=== PATIENT | female | born 1930 | race Caucasian/White ===

== ENCOUNTER → 2017-01-06 | Outpatient (CLI) | payer MEDICARE ==
[~2017-01-06] MED LIST: AMOXICILLIN500 MG PO; ASPIRIN ADULT L81 M1 PO; ASPIRIN81 M1 PO; BACTROBAN OINT22 GM PO; BLEPH-10 15 ML15 ML OP; CARAFATE1 GM PO; HYDROCODONE BIT1 T11 PO; LEVOFLOXACIN500 MG PO; LISINOPRIL2.5 MG; LOMOTIL 0.025 M1 TAB PO; PERCOCET 325 MG1 TA2; PLAVIX75 MG PO; PREDNISONE5 MG PO; PRINIVIL5 MG; PROTONIX40 MG PO; REGLAN5 MG PO; ROBAXIN750 MG PO; TYLENOL325 M2 PO; VANCOCIN IV; VITAMIN D2000 IU PO; VITAMIN D5000 IU PO; ZANTAC 150150 MG PO; ZANTAC150 MG PO; Zofran4 MG PO
[2017-01-06 08:48] LABS: BASO % 0.4 % (0.0-1.0); EOS # 0.8 10*3/uL (0.0-0.4); EOS % 11.2 % (1.0-4.0); HEMATOCRIT 33.8 % (37.0-47.0); HEMOGLOBIN 10.9 g/dl (12.0-16.0); LYMPH # 1.8 10*3/uL (1.3-4.4); LYMPH % 25.2 % (27.0-41.0); MEAN CELL VOLUME 90.9 fl (81.0-99.0); MEAN CORPUSCULAR HGB 29.3 pg (27.0-31.0); MEAN CORPUSCULAR HGB CONC 32.2 g/dl (33.0-37.0); MEAN PLATELET VOLUME 9.6 fl (9.6-12.3); MONO # 0.5 10*3/uL (0.1-1.0); MONO % 6.7 % (3.0-9.0); NEUT # 4.1 10*3/uL (2.3-7.9); NEUT % 56.2 % (47.0-73.0); PLATELET COUNT AUTOMATED 269 10*3/uL (130-400); RED BLOOD COUNT 3.72 10*6/uL (4.10-5.10); RED CELL DISTRI WIDTH 15.1 % (0-14.5); WHITE BLOOD COUNT 7.3 10*3/uL (4.8-10.8)
[2017-01-06 09:37] LABS: ALBUMIN 3.2 gm/dl (3.1-4.5); ALKALINE PHOSPHATASE 56 U/L (45-117); BUN 25 mg/dl (7-24); CHLORIDE 110 mmol/L (98-107); CHOLESTEROL 178 mg/dL (<200); CREATININE 0.67 mg/dL (0.55-1.02); HDL CHOLESTEROL 52 mg/dl (40-60); LDL CHOLESTEROL 97 mg/dL (9-159); POTASSIUM 3.6 mmol/L (3.5-5.1); SGOT/AST 18 IU/L (3-35); SGPT/ALT 14 U/L (12-78); SODIUM 142 mmol/L (136-145); TOTAL PROTEIN 6.8 gm/dL (6.4-8.2); TRIGLYCERIDES 144 mg/dl (<150); VLDL CHOLESTEROL 29 mg/dL (6-40)
== END | disposition home or self-care (01) ==
LOC: LAB 02:00 → ORTHO 02:00
PROVIDERS: Internal Medicine
DX: M17.12 Unilateral primary osteoarthritis, left knee (principal); I10 Essential (primary) hypertension; E78.2 Mixed hyperlipidemia; E55.9 Vitamin D deficiency, unspecified

== ENCOUNTER 2017-05-05 05:18 | Inpatient (IN) | payer MEDICARE ==
[~2017-05-05] VITALS: Ht 157.4 cm; Wt 88.0 kg
--- NOTE | ~2017-05-05 | CON ---
[place], [place] REPORT OF CONSULTATION NAME: THERESA JOYA UNIT #: [id number] ROOM: 405 DOCTOR: SAUNDRA MATTHEW MD BIRTHDATE: [birth year] DOS: 05/05/2017 REASON FOR CONSULTATION: Elevated troponin. HISTORY OF PRESENT ILLNESS: The patient Courtney is an 86-year-old woman who denies any previous history of heart disease. She states that she was in her normal state of health until about 2 weeks ago when she began noticing swelling in her knees. Last week, she began noticing swelling in her feet. She denied any associated cough, dyspnea, or obvious weight gain. Last night, she went to bed normally, but sometime during the night, fell out of bed. She noted that her legs seemed weak and were more swollen and she had some pain in her right shoulder. She therefore asked the staff at [facility] to call an ambulance and she was brought to the Emergency Room. She did not have any documented fractures. Her initial troponin level was mildly elevated at 0.269. Subsequent troponin levels were 0.232 and 0.251. Her electrocardiogram showed a possible old inferior wall myocardial infarction. We were therefore asked to see her. The patient denies any dyspnea, orthopnea or PND. She does note the peripheral edema that I referenced above. She continues to deny any chest pain. PAST MEDICAL HISTORY: Includes: 1. Essential hypertension. 2. Peptic ulcer disease with gastroesophageal reflux disease. 3. History of bilateral knee replacement. 4. Status post back surgery. 5. No history of diabetes, myocardial infarction, stroke or cigarette abuse. FAMILY HISTORY: The patient's mother of cancer. Father of unknown causes. MEDICATIONS PRIOR TO ADMISSION: Aspirin 81 mg per day, vitamin D3 2000 units per day, enalapril 2.5 mg daily, naproxen 500 mg b.i.d., pantoprazole 40 mg daily and Carafate 1 gram q.i.d. ALLERGIES: She has no known drug allergies. REVIEW OF SYSTEMS: The patient denies diplopia or loss of vision. She denies fevers, chills, sweats or recent weight change. She has had the peripheral edema noted above. She denies nausea or vomiting. She denies hemoptysis or hematemesis. She denies significant cough or wheezing. She denies any change in her appetite. She denies change in bowel or bladder habits and denies bleeding in her bowels or urine. She denies skin rashes. She denies heat or cold intolerance. She denies polydipsia or polyuria. The remainder of the review of systems is negative except as noted above. SOCIAL HISTORY: The patient resides at [facility]. She has never smoked and consumes no alcohol. PHYSICAL EXAMINATION: [place], [place] REPORT OF CONSULTATION NAME: THERESA JOYA UNIT #: [id number] ROOM: 405 DOCTOR: SAUNDRA MATTHEW MD BIRTHDATE: [birth year] GENERAL: The patient is an elderly white female who is awake, alert and oriented. VITAL SIGNS: Pulse is 83 and regular, blood pressure is 162/90. She is afebrile. She weighs 88.0 kg and has a body mass index of 35.5. HEENT: Normocephalic and atraumatic. Extraocular muscles are intact. Sclerae are clear. Pupils are equal, round and react to light. The oral mucosa is moist. Tongue is midline. NECK: Supple. She has no jugular distention or hepatojugular reflux. Carotids are full. I heard no bruits. She had no neck or supraclavicular masses. LUNGS: Respirations are unlabored. Her chest is clear to auscultation and percussion. She had no presacral edema or chest wall tenderness. CARDIOVASCULAR: Heart had a regular rhythm. She had a fourth heart sound, but no third heart sound or murmur. The PMI was not displaced. She has no precordial heave, lift or thrill. ABDOMEN: Soft and normally active without masses, organomegaly or bruits. EXTREMITIES: Showed 1+ edema bilaterally. She did have some erythema of her ankles bilaterally. Her legs were tender to palpation. Peripheral pulses were diminished bilaterally. LABORATORY DATA: I reviewed her electrocardiogram, which showed sinus rhythm and an inferior wall myocardial infarction of undetermined age. I did look at her echocardiogram. Left ventricular size and overall function are normal. She does have inferoseptal hypokinesis, but the remainder of the calderon thickened normally. She has stage 1 diastolic relaxation abnormalities and an ejection fraction greater than 55%. No significant abnormality of valve function is present. IMPRESSIONS: 1. 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 2. 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 3. History of hypertension. PLAN: Given the patient's age and frailty, I think a cautious, conservative approach to her management is appropriate. We will continue to diurese her and start her on beta blockers in addition to aspirin and statins. I would avoid nonsteroidal anti-inflammatory drugs aside from aspirin. Unless she has further symptoms, I think I would avoid a risk stratifying stress test at this point and simply treat her empirically. The patient told me she would like to avoid a lot of testing and just be treated with medications as needed. I thank the hospitalist physicians for asking our advice regarding her care. [place], [place] REPORT OF CONSULTATION NAME: THERESA JOYA UNIT #: [id number] ROOM: 405 DOCTOR: SAUNDRA MATTHEW MD BIRTHDATE: [birth year] SAUNDRA MATTHEW MD CM:CONSTR:REPORT OF CONSULTATION 1704 05/05/17 2256 interface
[2017-05-05 05:18] VITALS: BP 158/86
[2017-05-05 05:54] LABS: BILIRUBIN NEGATIVE (NEGATIVE); BLOOD 1+ (NEGATIVE); COLOR YELLOW (YELLOW); GLUCOSE NEGATIVE (NEGATIVE); KETONE NEGATIVE (NEGATIVE); LEUKO ESTERASE NEGATIVE (NEGATIVE); NITRITE NEGATIVE (NEGATIVE); SPECIFIC GRAVITY 1.025 (1.005-1.030); UROBILINOGEN 0.2 E.U./dl (0.2-1.0)
[2017-05-05 05:56] LABS: BASO % 0.5 % (0.0-1.0); EOS # 0.5 10*3/uL (0.0-0.4); EOS % 7.1 % (1.0-4.0); HEMATOCRIT 35.9 % (37.0-47.0); HEMOGLOBIN 11.2 g/dl (12.0-16.0); LYMPH # 1.4 10*3/uL (1.3-4.4); LYMPH % 19.7 % (27.0-41.0); MEAN CELL VOLUME 88.2 fl (81.0-99.0); MEAN CORPUSCULAR HGB 27.5 pg (27.0-31.0); MEAN CORPUSCULAR HGB CONC 31.2 g/dl (33.0-37.0); MEAN PLATELET VOLUME 9.7 fl (9.6-12.3); MONO # 0.4 10*3/uL (0.1-1.0); MONO % 5.8 % (3.0-9.0); NEUT # 4.9 10*3/uL (2.3-7.9); NEUT % 66.6 % (47.0-73.0); PLATELET COUNT AUTOMATED 279 10*3/uL (130-400); RED BLOOD COUNT 4.07 10*6/uL (4.10-5.10); RED CELL DISTRI WIDTH 16.4 % (0-14.5); WHITE BLOOD COUNT 7.3 10*3/uL (4.8-10.8)
[2017-05-05 06:09] LABS: CLARITY CLOUDY (CLEAR)
[2017-05-05 06:12] LABS: ALBUMIN 2.1 gm/dl (3.1-4.5); CREATININE 1.27 mg/dL (0.55-1.02); POTASSIUM 3.5 mmol/L (3.5-5.1); TOTAL PROTEIN 5.8 gm/dL (6.4-8.2)
[2017-05-05 06:15] LABS: TROPONIN I 0.269 ng/ml (<0.045)
[2017-05-05] MEDS ORDERED: NAPROXEN500 MG PO (06:15)
[2017-05-05 06:16] LABS: ACT PARTIAL THROMBO TIME 29.1 SECONDS (20.8-31.5); INTERNATIONAL NORM RATIO 0.9 (2.0-3.5)
[2017-05-05] MEDS ORDERED: ENALAPRIL MALEAT5 MG PO (06:17)
[2017-05-05 06:37] VITALS: BP 186/80
[2017-05-05 06:55] LABS: THYROID STIM HORMONE (HS) 4.05 uIU/ml (0.358-4.75)
[2017-05-05 08:30] VITALS: BP 165/76
[2017-05-05] MEDS ORDERED: VASOTEC2.5 MG PO (09:15)
[2017-05-05] MEDS ORDERED: VITAMIN D-32000 UNI1 PO (09:16)
[2017-05-05 12:00] VITALS: BP 157/81
[2017-05-05 16:00] VITALS: BP 162/90
[2017-05-05 20:00] VITALS: BP 148/73
[2017-05-06] VITALS: BP 135/82
[2017-05-06 06:22] LABS: BASO % 0.7 % (0.0-1.0); EOS # 0.5 10*3/uL (0.0-0.4); EOS % 7.8 % (1.0-4.0); HEMATOCRIT 31.4 % (37.0-47.0); LYMPH # 1.6 10*3/uL (1.3-4.4); LYMPH % 27.2 % (27.0-41.0); MEAN CELL VOLUME 87.7 fl (81.0-99.0); MEAN CORPUSCULAR HGB 27.9 pg (27.0-31.0); MEAN CORPUSCULAR HGB CONC 31.8 g/dl (33.0-37.0); MEAN PLATELET VOLUME 10.4 fl (9.6-12.3); MONO # 0.4 10*3/uL (0.1-1.0); MONO % 7.5 % (3.0-9.0); NEUT # 3.3 10*3/uL (2.3-7.9); NEUT % 56.6 % (47.0-73.0); PLATELET COUNT AUTOMATED 269 10*3/uL (130-400); RED BLOOD COUNT 3.58 10*6/uL (4.10-5.10); RED CELL DISTRI WIDTH 16.5 % (0-14.5); WHITE BLOOD COUNT 5.7 10*3/uL (4.8-10.8)
[2017-05-06 06:39] LABS: ALBUMIN 1.7 gm/dl (3.1-4.5); CREATININE 1.15 mg/dL (0.55-1.02); PHOSPHOROUS 3.3 mg/dL (2.5-4.9); POTASSIUM 3.6 mmol/L (3.5-5.1); TOTAL PROTEIN 4.9 gm/dL (6.4-8.2)
[2017-05-06 08:00] VITALS: BP 170/72
[2017-05-06 08:16] LABS: VITAMIN D, 25-HYDROXY 20.7 ng/mL (30-100)
[2017-05-06 12:00] VITALS: BP 126/77; BP 150/73
[2017-05-06 16:00] VITALS: BP 158/67
[2017-05-06 20:00] VITALS: BP 139/71
[2017-05-07] VITALS: BP 115/54
[2017-05-07 07:39] LABS: BASO % 0.3 % (0.0-1.0); EOS # 0.4 10*3/uL (0.0-0.4); EOS % 5.5 % (1.0-4.0); HEMATOCRIT 33.9 % (37.0-47.0); HEMOGLOBIN 10.8 g/dl (12.0-16.0); LYMPH # 1.6 10*3/uL (1.3-4.4); LYMPH % 22.3 % (27.0-41.0); MEAN CELL VOLUME 86.3 fl (81.0-99.0); MEAN CORPUSCULAR HGB 27.5 pg (27.0-31.0); MEAN CORPUSCULAR HGB CONC 31.9 g/dl (33.0-37.0); MEAN PLATELET VOLUME 9.9 fl (9.6-12.3); MONO # 0.5 10*3/uL (0.1-1.0); MONO % 6.9 % (3.0-9.0); NEUT # 4.7 10*3/uL (2.3-7.9); NEUT % 64.4 % (47.0-73.0); PLATELET COUNT AUTOMATED 268 10*3/uL (130-400); RED BLOOD COUNT 3.93 10*6/uL (4.10-5.10); RED CELL DISTRI WIDTH 16.5 % (0-14.5); WHITE BLOOD COUNT 7.3 10*3/uL (4.8-10.8)
[2017-05-07 08:00] VITALS: BP 134/66
[2017-05-07 08:08] LABS: POTASSIUM 3.5 mmol/L (3.5-5.1)
[2017-05-07 08:15] LABS: ALBUMIN 1.7 gm/dl (3.1-4.5); CREATININE 1.19 mg/dL (0.55-1.02); TOTAL PROTEIN 5.3 gm/dL (6.4-8.2)
[2017-05-07 12:00] VITALS: BP 138/73
[2017-05-07] MEDS ORDERED: FUROSEMIDE20 M1 PO (12:47)
[2017-05-07] MEDS ORDERED: ATORVASTATIN CA40 M1 PO (12:47)
[2017-05-07] MEDS ORDERED: METOPROLOL SUCC25 M2 PO (12:47)
== END 2017-05-07 15:00 | disposition home or self-care (01) | DRG 280 ==
LOC: ED 05:18 → 4E 07:32 → EDHOLD 07:32 → 4E 07:39
PROVIDERS: Emergency Medicine Emergency Medical Services; Internal Medicine; Internal Medicine Hospice and Palliative Medicine
DX: I21.4 Non-ST elevation (NSTEMI) myocardial infarction (principal); N17.0 Acute kidney failure with tubular necrosis; E43 Unspecified severe protein-calorie malnutrition; E87.0 Hyperosmolality and hypernatremia; I50.32 Chronic diastolic (congestive) heart failure; E87.8 Other disorders of electrolyte and fluid balance, not elsewhere classified; E86.0 Dehydration; D64.9 Anemia, unspecified; I11.0 Hypertensive heart disease with heart failure; F03.90 Unspecified dementia, unspecified severity, without behavioral disturbance, psychotic disturbance, mood disturbance, and anxiety; K25.7 Chronic gastric ulcer without hemorrhage or perforation; K21.9 Gastro-esophageal reflux disease without esophagitis; L53.9 Erythematous condition, unspecified; I25.10 Atherosclerotic heart disease of native coronary artery without angina pectoris; Z96.653 Presence of artificial knee joint, bilateral; K57.90 Diverticulosis of intestine, part unspecified, without perforation or abscess without bleeding; F32.9 Major depressive disorder, single episode, unspecified; F41.9 Anxiety disorder, unspecified; M19.90 Unspecified osteoarthritis, unspecified site; R73.03 Prediabetes; R80.9 Proteinuria, unspecified; D72.810 Lymphocytopenia; W06.XXXA Fall from bed, initial encounter; Y93.89 Activity, other specified; Y92.098 Other place in other non-institutional residence as the place of occurrence of the external cause; Y99.8 Other external cause status; Z87.11 Personal history of peptic ulcer disease; Z80.8 Family history of malignant neoplasm of other organs or systems; Z90.710 Acquired absence of both cervix and uterus; Z90.49 Acquired absence of other specified parts of digestive tract; Z98.49 Cataract extraction status, unspecified eye; Z83.3 Family history of diabetes mellitus; Z68.35 Body mass index [BMI] 35.0-35.9, adult; Z82.49 Family history of ischemic heart disease and other diseases of the circulatory system; Z79.899 Other long term (current) drug therapy; Z79.82 Long term (current) use of aspirin

== ENCOUNTER 2017-05-09 08:52 | Inpatient (IN) | payer MEDICARE ==
[~2017-05-09] VITALS: Ht 157.5 cm; Wt 90.7 kg
[2017-05-09] VITALS (7 sets, daily range): BP systolic 107–168; BP diastolic 54–80
--- NOTE | ~2017-05-09 | EKG ---
[place], [place] ELECTROCARDIOGRAM REPORT NAME: THERESA JOYA UNIT #: [id number] ROOM: [facility] DOCTOR: DEQUAN KLEIN,PEDRO LUIS BIRTHDATE: [birth year] DOS: 05/09/2017 TIME: 0946 hours. IMPRESSION: 1. Sinus rhythm. 2. Nonspecific ST-T changes. 3. Normal QT interval. PEDRO LUIS BAIRES MD CM:EKGRPT:ELECTROCARDIOGRAM REPORT [id number] PEDRO LUIS BAIRES MD
--- NOTE | ~2017-05-09 | PR ---
[place], [place] PROGRESS NOTE [id number] UNIT #: [id number] ROOM: 406 DOCTOR: CLARITA TINOCO MD BIRTHDATE: [birth year] DOS: 05/18/2017 SUBJECTIVE: The patient has no other complaints at this time. She is actually breathing and eating well without nausea or vomiting. She is afebrile. Still not moving around a whole lot, perhaps because of the weekend, PT is not available. OBJECTIVE: VITAL SIGNS: 98.3, 78, 18, 148/73, 97% on room air. GENERAL: Elderly frail woman, morbidly obese, lying comfortably in bed. Normal work of breathing, normal Speech pattern and insight and judgment. HEAD AND NECK: Sclerae are anicteric. Oropharynx clear. Mucous membranes moist. LUNGS: Clear, decreased at the bases. No audible rub. No palpable lift or heave. CARDIOVASCULAR: Rate is controlled, S1, S2. ABDOMEN: Obese, soft, nontender. No rebound or guarding. EXTREMITIES: Without cyanosis or clubbing. Mild dependent edema is present. LABORATORIES AND DIAGNOSTICS: Sodium 145, potassium 3.3, chloride 114, bicarbonate 21, BUN 51 and down and creatinine 3.79, stable. EGFR 11, has been 12 and 13 on prior days. Glucose 93, calcium 8.3, phosphorus 4.6, magnesium 2.4, albumin 1.9. ASSESSMENT AND PLAN: Acute kidney injury. Creatinine continues to slightly increased, though overall GFR is really stable. She has significant proteinuria. We have to hold enalapril because of acute kidney injury. Some of the ratio may be surreptitiously elevated because of the acute kidney injury though. Her prior indices suggested prerenal possibility, but at this point, she is eating and drinking without significant loss. Initial plans for that, she would not want to undergo renal replacement therapy or kidney biopsy to explore possible cause of her renal failure. I think this was reasonable. Somebody had discussion with her and her sons earlier today and it sounds as though she was under the impression that she was going to start dialysis today. I do not believe that there any acute medications at this point that require initiation of hemodialysis on an urgent basis, and I would recommend continued supportive care at this point. Most important thing, I think, for her at this point would be to increase her overall nutritional state and mobilization. She is able to get her activity levels up, consideration of dialysis may be more reasonable as recent studies have shown that patients that are completely dependent for the ADLs in chcf vitamins do exceedingly poor on dialysis and morbidity mortality may be better with conservative therapy alone. [place], [place] PROGRESS NOTE NAME: THERESA JOYA UNIT #: [id number] ROOM: [facility] DOCTOR: CLARITA TINOCO MD BIRTHDATE: [birth year] CLARITA TINOCO MD CM:PNTRANS 27 CLARITA TINOCO MD 05/18/172127 interface
--- NOTE | ~2017-05-09 | PR ---
[place], [place] PROGRESS NOTE NAME: THERESA JOYA [facility] #: [id number] UNIT #: [id number] ROOM: 406 DOCTOR: CLARITA TINOCO MD BIRTHDATE: [birth year] DOS: 05/17/2017 SUBJECTIVE: The patient was seen in followup of acute kidney injury. She is doing a bit better. She is having a hard small bowel movements, possibly secondary to her pain medications she was taking in the past. She is no longer on any enalapril or Lasix at this time. She was started on sucralfate. Creatinine continues to decline, is 3.72. She is making some urine, does not appear to be quantified quite accurately all the time, though. The hope is that she started to improve from physical and rehabilitative standpoint. She did not want hemodialysis. She states that she is drinking water. No IV fluids are running at this time. OBJECTIVE: VITAL SIGNS: Blood pressures are in the 140s-190s/50s-80s, saturations 100% on room air, temperature 97.6, pulse 66, respiratory rate 18. GENERAL: She is awake and alert. She is lying in bed, fairly comfortable, no shortness of breath, lying flat. HEAD AND NECK: Normocephalic, atraumatic. Extraocular muscles are intact. Sclerae are anicteric. Neck is without JVD or lymphadenopathy. LUNGS: Clear, without audible rales or wheeze. ABDOMEN: Obese, soft, nontender. No rebound, no guarding. EXTREMITIES: She has some mild edema in lower extremities and anasarca developed. NEUROLOGIC: Mood and affect are otherwise normal. SKIN: Without diffuse rashes or breakdown. LABORATORIES AND DIAGNOSTICS: Sodium 147, potassium 3.6, chloride 115, bicarbonate 21, BUN 55, creatinine 3.72, glucose 85. Calcium 8.3, phosphorus 4.6, magnesium 2.3, albumin 2.1. ASSESSMENT AND PLAN: Acute kidney injury. This is fairly severe, not yet to the point of requiring dialysis, though after discussion with the patient, she does not wish to undergo dialysis under any circumstances. At this point, we can continue supportive care. She may require some further increase in free water intake. Avoid JANELL inhibitors, ARBs, diuretics nephrotoxic agents, NSAID and if further IV fluids are needed because of emesis, they may be needed to start. We will continue to follow. [place], [place] PROGRESS NOTE [facility]: [id number] UNIT #: [id number] ROOM: 406 DOCTOR: CLARITA TINOCO MD BIRTHDATE: [birth year] CLARITA TINOCO MD CM:STACY [id number] CLARITA TINOCO MD 05/17/17 2139 interface
[~2017-05-09 08:52] MED LIST changes: +ATORVASTATIN CA40 M1 PO; +ENALAPRIL MALEAT5 MG PO; +FUROSEMIDE20 M1 PO; +METOPROLOL SUCC25 M2 PO; +NAPROXEN500 MG PO; +VASOTEC2.5 MG PO; +VITAMIN D-32000 UNI1 PO
[2017-05-09 09:49] LABS: BASO % 0.4 % (0.0-1.0); EOS # 0.3 10*3/uL (0.0-0.4); EOS % 3.6 % (1.0-4.0); HEMATOCRIT 30.7 % (37.0-47.0); HEMOGLOBIN 9.7 g/dl (12.0-16.0); LYMPH # 1.1 10*3/uL (1.3-4.4); LYMPH % 15.2 % (27.0-41.0); MEAN CORPUSCULAR HGB 27.8 pg (27.0-31.0); MEAN CORPUSCULAR HGB CONC 31.6 g/dl (33.0-37.0); MONO # 0.5 10*3/uL (0.1-1.0); MONO % 7.5 % (3.0-9.0); NEUT # 5.1 10*3/uL (2.3-7.9); NEUT % 72.9 % (47.0-73.0); PLATELET COUNT AUTOMATED 268 10*3/uL (130-400); RED BLOOD COUNT 3.49 10*6/uL (4.10-5.10); RED CELL DISTRI WIDTH 17.2 % (0-14.5); WHITE BLOOD COUNT 6.9 10*3/uL (4.8-10.8)
[2017-05-09 09:58] LABS: ACT PARTIAL THROMBO TIME 30.7 SECONDS (20.8-31.5); INTERNATIONAL NORM RATIO 0.9 (2.0-3.5)
[2017-05-09 10:11] LABS: ALBUMIN 1.8 gm/dl (3.1-4.5); CREATININE 2.85 mg/dL (0.55-1.02); POTASSIUM 4.4 mmol/L (3.5-5.1); TOTAL PROTEIN 4.8 gm/dL (6.4-8.2)
[2017-05-09 10:14] LABS: TROPONIN I 0.049 ng/ml (<0.045)
[2017-05-09 11:57] LABS: BILIRUBIN NEGATIVE (NEGATIVE); BLOOD 3+ (NEGATIVE); CLARITY CLOUDY (CLEAR); COLOR YELLOW (YELLOW); GLUCOSE NEGATIVE (NEGATIVE); KETONE NEGATIVE (NEGATIVE); LEUKO ESTERASE NEGATIVE (NEGATIVE); NITRITE POSITIVE (NEGATIVE); PH 5.5 (5.0-9.0); SPECIFIC GRAVITY 1.025 (1.005-1.030); UROBILINOGEN 0.2 E.U./dl (0.2-1.0)
[2017-05-09] MEDS ORDERED: METOPROLOL SUCC25 M2 PO (12:00)
[2017-05-09] MEDS ORDERED: LIPITOR40 MG PO (12:00)
[2017-05-09] MEDS ORDERED: LASIX20 MG PO (12:01)
[2017-05-09 12:27] LABS: BACTERIA 4+; RBC TNTC rbc/hpf (0-2); WBC 41-50 wbc/hpf (0-5)
[2017-05-10] VITALS: BP 156/59
[2017-05-10 07:28] LABS: BASO % 0.5 % (0.0-1.0); EOS # 0.3 10*3/uL (0.0-0.4); EOS % 4.2 % (1.0-4.0); HEMATOCRIT 30.8 % (37.0-47.0); HEMOGLOBIN 9.6 g/dl (12.0-16.0); LYMPH # 1.6 10*3/uL (1.3-4.4); LYMPH % 21.1 % (27.0-41.0); MEAN CELL VOLUME 87.3 fl (81.0-99.0); MEAN CORPUSCULAR HGB 27.2 pg (27.0-31.0); MEAN CORPUSCULAR HGB CONC 31.2 g/dl (33.0-37.0); MONO # 0.6 10*3/uL (0.1-1.0); MONO % 8.4 % (3.0-9.0); NEUT % 65.4 % (47.0-73.0); PLATELET COUNT AUTOMATED 266 10*3/uL (130-400); RED BLOOD COUNT 3.53 10*6/uL (4.10-5.10); RED CELL DISTRI WIDTH 17.4 % (0-14.5); WHITE BLOOD COUNT 7.6 10*3/uL (4.8-10.8)
[2017-05-10 07:52] LABS: ALBUMIN 1.7 gm/dl (3.1-4.5); POTASSIUM 3.6 mmol/L (3.5-5.1)
[2017-05-10 07:58] LABS: CREATININE 2.82 mg/dL (0.55-1.02); PHOSPHOROUS 4.4 mg/dL (2.5-4.9); TOTAL PROTEIN 5.4 gm/dL (6.4-8.2)
[2017-05-10 08:00] VITALS: BP 149/62
[2017-05-10 12:00] VITALS: BP 156/61
[2017-05-10 16:00] VITALS: BP 127/65
[2017-05-10 20:00] VITALS: BP 167/71
[2017-05-11] VITALS: BP 128/74; BP 182/73
[2017-05-11 07:08] LABS: BASO % 0.4 % (0.0-1.0); EOS # 0.7 10*3/uL (0.0-0.4); EOS % 8.8 % (1.0-4.0); HEMATOCRIT 33.2 % (37.0-47.0); HEMOGLOBIN 10.6 g/dl (12.0-16.0); LYMPH # 1.5 10*3/uL (1.3-4.4); LYMPH % 19.5 % (27.0-41.0); MEAN CELL VOLUME 88.1 fl (81.0-99.0); MEAN CORPUSCULAR HGB 28.1 pg (27.0-31.0); MEAN CORPUSCULAR HGB CONC 31.9 g/dl (33.0-37.0); MEAN PLATELET VOLUME 11.5 fl (9.6-12.3); MONO # 0.6 10*3/uL (0.1-1.0); MONO % 8.3 % (3.0-9.0); NEUT # 4.8 10*3/uL (2.3-7.9); NEUT % 62.5 % (47.0-73.0); PLATELET COUNT AUTOMATED 276 10*3/uL (130-400); RED BLOOD COUNT 3.77 10*6/uL (4.10-5.10); RED CELL DISTRI WIDTH 17.5 % (0-14.5); WHITE BLOOD COUNT 7.6 10*3/uL (4.8-10.8)
[2017-05-11 07:19] LABS: CREATININE 2.87 mg/dL (0.55-1.02); POTASSIUM 3.8 mmol/L (3.5-5.1)
[2017-05-11 08:00] VITALS: BP 180/70
[2017-05-11 12:00] VITALS: BP 162/60
[2017-05-11 16:00] VITALS: BP 141/58
[2017-05-11 20:00] VITALS: BP 170/48
[2017-05-12] VITALS: BP 145/59
[2017-05-12 08:00] VITALS: BP 146/60
[2017-05-12 08:49] LABS: ALBUMIN 1.6 gm/dl (3.1-4.5); CREATININE 3.07 mg/dL (0.55-1.02); PHOSPHOROUS 4.8 mg/dL (2.5-4.9); POTASSIUM 3.9 mmol/L (3.5-5.1)
[2017-05-12 12:00] VITALS: BP 150/62
[2017-05-12 16:00] VITALS: BP 133/47
[2017-05-12 20:00] VITALS: BP 147/63
[2017-05-13] VITALS: BP 152/58
[2017-05-13 04:05] LABS: BILIRUBIN NEGATIVE (NEGATIVE); BLOOD 3+ (NEGATIVE); CLARITY SL CLOUDY (CLEAR); COLOR YELLOW (YELLOW); GLUCOSE NEGATIVE (NEGATIVE); KETONE NEGATIVE (NEGATIVE); LEUKO ESTERASE NEGATIVE (NEGATIVE); NITRITE NEGATIVE (NEGATIVE); SPECIFIC GRAVITY 1.015 (1.005-1.030); UROBILINOGEN 0.2 E.U./dl (0.2-1.0)
[2017-05-13 04:18] LABS: RBC 21-30 rbc/hpf (0-2)
[2017-05-13 07:35] LABS: ALBUMIN 1.6 gm/dl (3.1-4.5); CREATININE 3.33 mg/dL (0.55-1.02); PHOSPHOROUS 4.7 mg/dL (2.5-4.9); POTASSIUM 3.7 mmol/L (3.5-5.1)
[2017-05-13 08:00] VITALS: BP 108/88
[2017-05-13 12:00] VITALS: BP 150/50
[2017-05-13 16:00] VITALS: BP 160/62
[2017-05-13 20:00] VITALS: BP 158/45
[2017-05-14] VITALS: BP 174/62
[2017-05-14 07:24] LABS: BASO % 0.3 % (0.0-1.0); EOS # 0.5 10*3/uL (0.0-0.4); EOS % 7.7 % (1.0-4.0); HEMATOCRIT 29.1 % (37.0-47.0); HEMOGLOBIN 9.3 g/dl (12.0-16.0); LYMPH # 1.2 10*3/uL (1.3-4.4); LYMPH % 18.7 % (27.0-41.0); MEAN CELL VOLUME 87.9 fl (81.0-99.0); MEAN CORPUSCULAR HGB 28.1 pg (27.0-31.0); MEAN PLATELET VOLUME 11.1 fl (9.6-12.3); MONO # 0.6 10*3/uL (0.1-1.0); MONO % 9.3 % (3.0-9.0); NEUT % 63.5 % (47.0-73.0); PLATELET COUNT AUTOMATED 289 10*3/uL (130-400); RED BLOOD COUNT 3.31 10*6/uL (4.10-5.10); RED CELL DISTRI WIDTH 17.8 % (0-14.5); WHITE BLOOD COUNT 6.4 10*3/uL (4.8-10.8)
[2017-05-14 08:00] VITALS: BP 140/72
[2017-05-14 08:01] LABS: ALBUMIN 1.3 gm/dl (3.1-4.5); CREATININE 3.34 mg/dL (0.55-1.02); PHOSPHOROUS 4.8 mg/dL (2.5-4.9); POTASSIUM 3.5 mmol/L (3.5-5.1)
[2017-05-14 12:00] VITALS: BP 138/76
[2017-05-14 16:00] VITALS: BP 102/75
[2017-05-14 20:00] VITALS: BP 146/58; BP 160/47
[2017-05-15] VITALS: BP 148/75
[2017-05-15 07:36] LABS: ALBUMIN 2.6 gm/dl (3.1-4.5); CREATININE 3.32 mg/dL (0.55-1.02); PHOSPHOROUS 4.5 mg/dL (2.5-4.9); POTASSIUM 3.4 mmol/L (3.5-5.1)
[2017-05-15 08:00] VITALS: BP 150/80
[2017-05-15 12:00] VITALS: BP 148/84
[2017-05-15 12:03] LABS: BILIRUBIN NEGATIVE (NEGATIVE); BLOOD 3+ (NEGATIVE); CLARITY CLOUDY (CLEAR); COLOR YELLOW (YELLOW); GLUCOSE NEGATIVE (NEGATIVE); KETONE NEGATIVE (NEGATIVE); LEUKO ESTERASE NEGATIVE (NEGATIVE); NITRITE NEGATIVE (NEGATIVE); UROBILINOGEN 0.2 E.U./dl (0.2-1.0)
[2017-05-15 12:12] LABS: BACTERIA 1+
[2017-05-15 12:20] LABS: URINE CREATININE RANDOM 40.3 mg/dL
[2017-05-15 16:00] VITALS: BP 155/53
[2017-05-15 20:00] VITALS: BP 178/76
[2017-05-16] VITALS: BP 143/46
[2017-05-16 07:18] LABS: ALBUMIN 3.1 gm/dl (3.1-4.5); POTASSIUM 3.9 mmol/L (3.5-5.1)
[2017-05-16 07:22] LABS: CREATININE 3.51 mg/dL (0.55-1.02); PHOSPHOROUS 4.4 mg/dL (2.5-4.9)
[2017-05-16 08:00] VITALS: BP 152/60
[2017-05-16 12:00] VITALS: BP 159/70
[2017-05-16 16:00] VITALS: BP 176/74
[2017-05-16 20:00] VITALS: BP 155/67
[2017-05-17] VITALS: BP 144/50
[2017-05-17 07:53] LABS: ALBUMIN 2.1 gm/dl (3.1-4.5); CREATININE 3.72 mg/dL (0.55-1.02); PHOSPHOROUS 4.6 mg/dL (2.5-4.9); POTASSIUM 3.6 mmol/L (3.5-5.1)
[2017-05-17 08:00] VITALS: BP 181/72
[2017-05-17 12:00] VITALS: BP 192/84
[2017-05-17 16:00] VITALS: BP 146/53
[2017-05-17 20:00] VITALS: BP 153/67
[2017-05-18] VITALS: BP 140/50
[2017-05-18 07:19] LABS: BASO % 0.4 % (0.0-1.0); EOS # 0.4 10*3/uL (0.0-0.4); EOS % 5.1 % (1.0-4.0); HEMATOCRIT 29.6 % (37.0-47.0); HEMOGLOBIN 9.4 g/dl (12.0-16.0); LYMPH # 1.3 10*3/uL (1.3-4.4); LYMPH % 18.3 % (27.0-41.0); MEAN CELL VOLUME 87.6 fl (81.0-99.0); MEAN CORPUSCULAR HGB 27.8 pg (27.0-31.0); MEAN CORPUSCULAR HGB CONC 31.8 g/dl (33.0-37.0); MEAN PLATELET VOLUME 10.8 fl (9.6-12.3); MONO # 0.5 10*3/uL (0.1-1.0); MONO % 7.2 % (3.0-9.0); NEUT # 4.8 10*3/uL (2.3-7.9); NEUT % 68.3 % (47.0-73.0); PLATELET COUNT AUTOMATED 326 10*3/uL (130-400); RED BLOOD COUNT 3.38 10*6/uL (4.10-5.10); RED CELL DISTRI WIDTH 18.3 % (0-14.5); WHITE BLOOD COUNT 7.1 10*3/uL (4.8-10.8)
[2017-05-18 07:43] LABS: ALBUMIN 1.9 gm/dl (3.1-4.5); POTASSIUM 3.3 mmol/L (3.5-5.1)
[2017-05-18 07:46] LABS: CREATININE 3.79 mg/dL (0.55-1.02); PHOSPHOROUS 4.8 mg/dL (2.5-4.9)
[2017-05-18 08:00] VITALS: BP 160/80
[2017-05-18 12:00] VITALS: BP 148/73
[2017-05-18 16:00] VITALS: BP 157/71
[2017-05-18 20:00] VITALS: BP 145/70
[2017-05-19] VITALS: BP 155/67
[2017-05-19 07:49] LABS: BASO % 0.4 % (0.0-1.0); EOS # 0.4 10*3/uL (0.0-0.4); EOS % 5.5 % (1.0-4.0); HEMATOCRIT 29.3 % (37.0-47.0); HEMOGLOBIN 9.6 g/dl (12.0-16.0); LYMPH # 1.4 10*3/uL (1.3-4.4); LYMPH % 18.9 % (27.0-41.0); MEAN CELL VOLUME 87.2 fl (81.0-99.0); MEAN CORPUSCULAR HGB 28.6 pg (27.0-31.0); MEAN CORPUSCULAR HGB CONC 32.8 g/dl (33.0-37.0); MEAN PLATELET VOLUME 10.5 fl (9.6-12.3); MONO # 0.5 10*3/uL (0.1-1.0); MONO % 7.1 % (3.0-9.0); NEUT # 4.9 10*3/uL (2.3-7.9); NEUT % 67.6 % (47.0-73.0); NUCLEATED RED BLOOD CELL 0.3 % (0.0-0.0); PLATELET COUNT AUTOMATED 302 10*3/uL (130-400); RED BLOOD COUNT 3.36 10*6/uL (4.10-5.10); RED CELL DISTRI WIDTH 18.6 % (0-14.5); WHITE BLOOD COUNT 7.3 10*3/uL (4.8-10.8)
[2017-05-19 07:54] LABS: ALBUMIN 1.6 gm/dl (3.1-4.5); CREATININE 4.02 mg/dL (0.55-1.02); PHOSPHOROUS 5.1 mg/dL (2.5-4.9); POTASSIUM 3.4 mmol/L (3.5-5.1)
[2017-05-19 08:00] VITALS: BP 147/65
[2017-05-19] MEDS ORDERED: LASIX20 MG PO (11:08)
[2017-05-19 13:00] VITALS: BP 126/45
== END 2017-05-19 14:48 | disposition hospice, home (50) | DRG 682 ==
LOC: ED 08:52 → EDHOLD 11:25 → 4E 11:25
PROVIDERS: Internal Medicine; Internal Medicine Hospice and Palliative Medicine; Internal Medicine Nephrology; Nurse Practitioner Family; Student in an Organized Health Care Education/Training Program
DX: N17.0 Acute kidney failure with tubular necrosis (principal); E43 Unspecified severe protein-calorie malnutrition; I21.4 Non-ST elevation (NSTEMI) myocardial infarction; G93.41 Metabolic encephalopathy; E87.0 Hyperosmolality and hypernatremia; E86.0 Dehydration; I50.32 Chronic diastolic (congestive) heart failure; I13.0 Hypertensive heart and chronic kidney disease with heart failure and stage 1 through stage 4 chronic kidney disease, or unspecified chronic kidney disease; D64.9 Anemia, unspecified; N39.0 Urinary tract infection, site not specified; Z66 Do not resuscitate; R73.03 Prediabetes; R26.2 Difficulty in walking, not elsewhere classified; K21.9 Gastro-esophageal reflux disease without esophagitis; K25.9 Gastric ulcer, unspecified as acute or chronic, without hemorrhage or perforation; K57.90 Diverticulosis of intestine, part unspecified, without perforation or abscess without bleeding; Z96.653 Presence of artificial knee joint, bilateral; E87.6 Hypokalemia; E78.5 Hyperlipidemia, unspecified; F03.90 Unspecified dementia, unspecified severity, without behavioral disturbance, psychotic disturbance, mood disturbance, and anxiety; F41.9 Anxiety disorder, unspecified; F32.9 Major depressive disorder, single episode, unspecified; E78.00 Pure hypercholesterolemia, unspecified; D72.810 Lymphocytopenia; R73.9 Hyperglycemia, unspecified; E66.01 Morbid (severe) obesity due to excess calories; N18.3 Chronic kidney disease, stage 3 (moderate); Z51.5 Encounter for palliative care; Z90.710 Acquired absence of both cervix and uterus; Z90.49 Acquired absence of other specified parts of digestive tract; Z98.42 Cataract extraction status, left eye; Z91.81 History of falling; I25.2 Old myocardial infarction; Z79.82 Long term (current) use of aspirin; Z87.11 Personal history of peptic ulcer disease; Z79.899 Other long term (current) drug therapy; Z98.41 Cataract extraction status, right eye; Z80.9 Family history of malignant neoplasm, unspecified; Z83.3 Family history of diabetes mellitus; Z82.49 Family history of ischemic heart disease and other diseases of the circulatory system; Z68.35 Body mass index [BMI] 35.0-35.9, adult

== ENCOUNTER 2017-05-27 13:17 | Inpatient (IN) | payer MEDICARE ==
[~2017-05-27] VITALS: Ht 154.9 cm; Wt 92.7 kg
[2017-05-27] VITALS (7 sets, daily range): BP systolic 138–172; BP diastolic 51–82
--- NOTE | ~2017-05-27 | PR ---
[place], [place] PROGRESS NOTE [facility]: [id number] UNIT #: [id number] ROOM: 406 DOCTOR: [place] KLEIN,FAB Dan BIRTHDATE: [birth year] DOS: 06/08/2017 SUBJECTIVE: Notes were reviewed over the past few days. The patient has not had any laboratory data for several days. The patient's family is seeking hospice care. Currently, there is no further renal testing or care recommended. We will sign off. If something changes, please call. FAB BERNARDO MD CM:PNTRANS [id number] FAB BERNARDO MD 06/08/17 1730 interface
[~2017-05-27 13:17] MED LIST changes: +LASIX20 MG PO; +LIPITOR40 MG PO
[2017-05-27 14:52] LABS: BASO % 0.3 % (0.0-1.0); EOS # 0.4 10*3/uL (0.0-0.4); EOS % 4.5 % (1.0-4.0); HEMATOCRIT 32.8 % (37.0-47.0); HEMOGLOBIN 10.4 g/dl (12.0-16.0); LYMPH # 1.4 10*3/uL (1.3-4.4); LYMPH % 15.5 % (27.0-41.0); MEAN CELL VOLUME 88.9 fl (81.0-99.0); MEAN CORPUSCULAR HGB 28.2 pg (27.0-31.0); MEAN CORPUSCULAR HGB CONC 31.7 g/dl (33.0-37.0); MEAN PLATELET VOLUME 11.1 fl (9.6-12.3); MONO # 0.8 10*3/uL (0.1-1.0); MONO % 8.8 % (3.0-9.0); NEUT # 6.3 10*3/uL (2.3-7.9); NEUT % 70.5 % (47.0-73.0); PLATELET COUNT AUTOMATED 295 10*3/uL (130-400); RED BLOOD COUNT 3.69 10*6/uL (4.10-5.10); WHITE BLOOD COUNT 8.9 10*3/uL (4.8-10.8)
[2017-05-27 15:00] LABS: ACT PARTIAL THROMBO TIME 37.7 SECONDS (20.8-31.5)
[2017-05-27 15:17] LABS: ALBUMIN 1.5 gm/dl (3.1-4.5); CREATININE 5.25 mg/dL (0.55-1.02); POTASSIUM 4.2 mmol/L (3.5-5.1); TOTAL PROTEIN 5.6 gm/dL (6.4-8.2); TROPONIN I 0.02 ng/ml (<0.045)
[2017-05-27 18:02] LABS: BILIRUBIN NEGATIVE (NEGATIVE); BLOOD 3+ (NEGATIVE); CLARITY TURBID (CLEAR); COLOR YELLOW (YELLOW); GLUCOSE NEGATIVE (NEGATIVE); KETONE NEGATIVE (NEGATIVE); LEUKO ESTERASE 2+ (NEGATIVE); NITRITE NEGATIVE (NEGATIVE); SPECIFIC GRAVITY 1.025 (1.005-1.030); UROBILINOGEN 0.2 E.U./dl (0.2-1.0)
[2017-05-27 18:11] LABS: RBC TNTC rbc/hpf (0-2)
[2017-05-27] MEDS ORDERED: DAIRY RELIE3000 UNIT PO (20:42)
[2017-05-27] MEDS ORDERED: TYLENOL WITH C1 EACH PO (20:45)
[2017-05-27] MEDS ORDERED: OMEPRAZOLE D/R20 MG PO (20:45)
[2017-05-27] MEDS ORDERED: Zofran4 MG SL (20:48)
[2017-05-27] MEDS ORDERED: ZOFRAN4 MG PO (20:48)
[2017-05-27] MEDS ORDERED: [UNRECOGNIZED DRUG - OTHER] PO (20:50)
[2017-05-28] VITALS: BP 132/69
[2017-05-28 07:22] LABS: BASO % 0.2 % (0.0-1.0); EOS # 0.4 10*3/uL (0.0-0.4); EOS % 4.6 % (1.0-4.0); HEMATOCRIT 28.5 % (37.0-47.0); HEMOGLOBIN 9.1 g/dl (12.0-16.0); LYMPH # 1.2 10*3/uL (1.3-4.4); LYMPH % 14.2 % (27.0-41.0); MEAN CELL VOLUME 88.8 fl (81.0-99.0); MEAN CORPUSCULAR HGB 28.3 pg (27.0-31.0); MEAN CORPUSCULAR HGB CONC 31.9 g/dl (33.0-37.0); MEAN PLATELET VOLUME 10.5 fl (9.6-12.3); MONO # 0.7 10*3/uL (0.1-1.0); MONO % 7.7 % (3.0-9.0); NEUT # 6.2 10*3/uL (2.3-7.9); NEUT % 72.8 % (47.0-73.0); PLATELET COUNT AUTOMATED 270 10*3/uL (130-400); RED BLOOD COUNT 3.21 10*6/uL (4.10-5.10); RED CELL DISTRI WIDTH 19.9 % (0-14.5); WHITE BLOOD COUNT 8.6 10*3/uL (4.8-10.8)
[2017-05-28 07:54] LABS: POTASSIUM 3.9 mmol/L (3.5-5.1)
[2017-05-28 08:00] VITALS: BP 117/72
[2017-05-28 08:07] LABS: VITAMIN D, 25-HYDROXY 11.5 ng/mL (30-100)
[2017-05-28 08:12] LABS: ALBUMIN 1.4 gm/dl (3.1-4.5); CREATININE 5.24 mg/dL (0.55-1.02); FREE T4 1.07 ng/dl (0.76-1.46); PHOSPHOROUS 7.4 mg/dL (2.5-4.9); THYROID STIM HORMONE (HS) 4.46 uIU/ml (0.358-4.75); TOTAL PROTEIN 5.2 gm/dL (6.4-8.2)
[2017-05-28 12:00] VITALS: BP 159/59
[2017-05-28 16:00] VITALS: BP 139/94
[2017-05-28 20:00] VITALS: BP 152/72
[2017-05-29] VITALS: BP 155/53
[2017-05-29 05:57] LABS: ALBUMIN 1.3 gm/dl (3.1-4.5); CREATININE 5.3 mg/dL (0.55-1.02); PHOSPHOROUS 8.3 mg/dL (2.5-4.9); POTASSIUM 3.8 mmol/L (3.5-5.1)
[2017-05-29 06:01] LABS: BASO % 0.4 % (0.0-1.0); EOS # 0.4 10*3/uL (0.0-0.4); HEMATOCRIT 27.8 % (37.0-47.0); HEMOGLOBIN 8.6 g/dl (12.0-16.0); LYMPH # 1.3 10*3/uL (1.3-4.4); LYMPH % 15.7 % (27.0-41.0); MEAN CELL VOLUME 89.1 fl (81.0-99.0); MEAN CORPUSCULAR HGB 27.6 pg (27.0-31.0); MEAN CORPUSCULAR HGB CONC 30.9 g/dl (33.0-37.0); MEAN PLATELET VOLUME 11.3 fl (9.6-12.3); MONO # 0.7 10*3/uL (0.1-1.0); MONO % 8.8 % (3.0-9.0); NEUT # 5.8 10*3/uL (2.3-7.9); NEUT % 69.3 % (47.0-73.0); PLATELET COUNT AUTOMATED 272 10*3/uL (130-400); RED BLOOD COUNT 3.12 10*6/uL (4.10-5.10); RED CELL DISTRI WIDTH 20.6 % (0-14.5); WHITE BLOOD COUNT 8.4 10*3/uL (4.8-10.8)
[2017-05-29 08:00] VITALS: BP 144/60
[2017-05-29 08:10] LABS: COMPLEMENT C4 001834 46 mg/dL (14-44); RHEUMATOID ARTHRITIS FACTOR <10.0 IU/mL (0.0-13.9)
[2017-05-29 10:04] LABS: ANTI-DSDNA ANTIBODIES 096339 1 IU/mL (0-9); HEPATITIS B SURFACE AG Negative (Negative); HEPATITIS C VIRUS ANTIBODY 0.2 s/co (0.0-0.9)
[2017-05-29 12:00] VITALS: BP 150/52
[2017-05-29 15:06] LABS: A/G RATIO 0.6 (0.7-1.7); ALBUMIN 1.8 g/dL (2.9-4.4); ALPHA-1-GLOBULIN 0.3 g/dL (0.0-0.4); ALPHA-2-GLOBULIN 1.3 g/dL (0.4-1.0); ATYPICAL PANCA <1:20 titer (Neg:<1:20); BETA GLOBULIN 0.9 g/dL (0.7-1.3); CYTOPLASMIC (C-ANCA) <1:20 titer (Neg:<1:20); GAMMA GLOBULIN 0.5 g/dL (0.4-1.8); M-SPIKE Not Observed g/dL (Not Observed); TOTAL PROTEIN, SERUM 4.8 g/dL (6.0-8.5)
[2017-05-29 16:00] VITALS: BP 142/86
[2017-05-29 17:06] LABS: FREE KAPPA LIGHT CHAINS 119.9 mg/L (3.3-19.4); FREE LAMBDA LIGHT CHAINS 65.9 mg/L (5.7-26.3); KAPPA/LAMBDA RATIO 1.82 (0.26-1.65)
[2017-05-29 20:05] VITALS: BP 131/57
[2017-05-30] VITALS: BP 136/57; BP 174/83
[2017-05-30 07:44] LABS: ALBUMIN 1.3 gm/dl (3.1-4.5); CREATININE 5.63 mg/dL (0.55-1.02); PHOSPHOROUS 8.8 mg/dL (2.5-4.9); POTASSIUM 3.7 mmol/L (3.5-5.1)
[2017-05-30 08:00] VITALS: BP 142/66
[2017-05-30 10:04] LABS: GLOMERULAR BASEMENT 082719 4 units (0-20)
[2017-05-30 12:00] VITALS: BP 117/51
[2017-05-30 16:00] VITALS: BP 144/54
[2017-05-30 20:00] VITALS: BP 130/58
[2017-05-31] VITALS: BP 119/50
[2017-05-31 07:22] LABS: ALBUMIN 1.2 gm/dl (3.1-4.5); CREATININE 5.82 mg/dL (0.55-1.02); PHOSPHOROUS 8.6 mg/dL (2.5-4.9); POTASSIUM 3.5 mmol/L (3.5-5.1)
[2017-05-31 08:00] VITALS: BP 122/60
[2017-05-31 12:00] VITALS: BP 128/56
[2017-05-31 16:00] VITALS: BP 170/55
[2017-05-31 20:00] VITALS: BP 132/73; BP 145/73
[2017-06-01] VITALS: BP 141/62
[2017-06-01 06:38] LABS: POTASSIUM 3.8 mmol/L (3.5-5.1)
[2017-06-01 06:46] LABS: ALBUMIN 1.2 gm/dl (3.1-4.5); CREATININE 5.68 mg/dL (0.55-1.02); PHOSPHOROUS 8.3 mg/dL (2.5-4.9)
[2017-06-01 08:00] VITALS: BP 126/54
[2017-06-01 12:00] VITALS: BP 124/58
[2017-06-01 16:00] VITALS: BP 132/77
[2017-06-01 20:00] VITALS: BP 135/53
[2017-06-02] VITALS: BP 142/69
[2017-06-02 07:23] LABS: ALBUMIN 1.1 gm/dl (3.1-4.5); CREATININE 5.51 mg/dL (0.55-1.02); PHOSPHOROUS 8.4 mg/dL (2.5-4.9); POTASSIUM 3.6 mmol/L (3.5-5.1)
[2017-06-02 08:00] VITALS: BP 116/70
[2017-06-02 12:00] VITALS: BP 132/52
[2017-06-02 15:06] LABS: ALBUMIN, URINE RANDOM 65.6 % (.); ALPHA-2-GLOBULIN, URINE 9.6 % (.); GAMMA GLOBULIN, URINE 11.2 % (.); M-SPIKE % Not Observed % (Not Observed); PROTEIN,TOTAL - URINE RANDOM 1609.4 mg/dL (Not Estab.)
[2017-06-02 16:00] VITALS: BP 172/63
[2017-06-02 20:00] VITALS: BP 140/65
[2017-06-03] VITALS (13 sets, daily range): BP systolic 101–153; BP diastolic 42–83
[2017-06-03 06:50] LABS: BASO % 0.4 % (0.0-1.0); EOS # 0.4 10*3/uL (0.0-0.4); EOS % 5.1 % (1.0-4.0); HEMATOCRIT 26.6 % (37.0-47.0); HEMOGLOBIN 8.5 g/dl (12.0-16.0); LYMPH # 1.4 10*3/uL (1.3-4.4); LYMPH % 17.8 % (27.0-41.0); MEAN CELL VOLUME 86.1 fl (81.0-99.0); MEAN CORPUSCULAR HGB 27.5 pg (27.0-31.0); MEAN PLATELET VOLUME 10.9 fl (9.6-12.3); MONO # 0.7 10*3/uL (0.1-1.0); MONO % 8.5 % (3.0-9.0); NEUT # 5.4 10*3/uL (2.3-7.9); NEUT % 66.8 % (47.0-73.0); PLATELET COUNT AUTOMATED 218 10*3/uL (130-400); RED BLOOD COUNT 3.09 10*6/uL (4.10-5.10); RED CELL DISTRI WIDTH 19.7 % (0-14.5)
[2017-06-03 07:06] LABS: CREATININE 5.67 mg/dL (0.55-1.02); POTASSIUM 3.5 mmol/L (3.5-5.1)
[2017-06-03 07:31] LABS: PHOSPHOROUS 8.1 mg/dL (2.5-4.9)
[2017-06-04] VITALS: BP 131/67
[2017-06-04 08:00] VITALS: BP 133/66
[2017-06-04 11:21] LABS: ALBUMIN 0.9 gm/dl (3.1-4.5); CREATININE 5.82 mg/dL (0.55-1.02); POTASSIUM 3.6 mmol/L (3.5-5.1)
[2017-06-04 11:35] LABS: PHOSPHOROUS 8.7 mg/dL (2.5-4.9)
[2017-06-04 12:00] VITALS: BP 122/60
[2017-06-04 14:29] LABS: HEMATOCRIT 29.3 % (37.0-47.0); HEMOGLOBIN 9.5 g/dl (12.0-16.0); MEAN CELL VOLUME 85.9 fl (81.0-99.0); MEAN CORPUSCULAR HGB 27.9 pg (27.0-31.0); MEAN CORPUSCULAR HGB CONC 32.4 g/dl (33.0-37.0); MEAN PLATELET VOLUME 11.4 fl (9.6-12.3); PLATELET COUNT AUTOMATED 219 10*3/uL (130-400); RED BLOOD COUNT 3.41 10*6/uL (4.10-5.10); RED CELL DISTRI WIDTH 19.3 % (0-14.5); WHITE BLOOD COUNT 8.3 10*3/uL (4.8-10.8)
[2017-06-04 16:00] VITALS: BP 143/64
[2017-06-04 20:00] VITALS: BP 137/64
[2017-06-05 00:01] VITALS: BP 140/71
[2017-06-05 08:00] VITALS: BP 138/42
[2017-06-05 12:00] VITALS: BP 130/40
[2017-06-05 16:00] VITALS: BP 132/81
[2017-06-05 20:00] VITALS: BP 132/81
[2017-06-06] VITALS: BP 126/69
[2017-06-06 08:00] VITALS: BP 130/74
[2017-06-06 12:00] VITALS: BP 100/52
[2017-06-06 16:00] VITALS: BP 124/66
[2017-06-06 20:00] VITALS: BP 144/86; BP 92/58
[2017-06-07] VITALS: BP 106/60
[2017-06-07 08:00] VITALS: BP 129/82
[2017-06-07 12:00] VITALS: BP 122/71
[2017-06-07 16:00] VITALS: BP 134/54
[2017-06-07 20:00] VITALS: BP 126/90
[2017-06-08] VITALS: BP 131/33
[2017-06-08 02:31] VITALS: BP 130/70
[2017-06-08 08:00] VITALS: BP 137/58
[2017-06-08 12:00] VITALS: BP 113/51
[2017-06-08 16:00] VITALS: BP 110/63
[2017-06-08 20:00] VITALS: BP 109/59
[2017-06-09] VITALS: BP 137/63
[2017-06-09 08:00] VITALS: BP 117/47
[2017-06-09 12:00] VITALS: BP 118/46
== END 2017-06-09 13:45 | disposition hospice, home (50) | DRG 871 ==
LOC: ED 13:17 → EDHOLD 18:17 → 4E 18:17
PROVIDERS: Family Medicine; Internal Medicine; Internal Medicine Nephrology; Nurse Practitioner Family
PROC: 0TB03ZX Excision of Right Kidney, Percutaneous Approach, Diagnostic (ICD-10-PCS; principal; 2017-06-03)
DX: A41.9 Sepsis, unspecified organism (principal); E43 Unspecified severe protein-calorie malnutrition; N17.0 Acute kidney failure with tubular necrosis; G93.41 Metabolic encephalopathy; I13.2 Hypertensive heart and chronic kidney disease with heart failure and with stage 5 chronic kidney disease, or end stage renal disease; E87.0 Hyperosmolality and hypernatremia; E87.8 Other disorders of electrolyte and fluid balance, not elsewhere classified; D72.1 Eosinophilia; R13.10 Dysphagia, unspecified; N18.5 Chronic kidney disease, stage 5; N39.0 Urinary tract infection, site not specified; I50.32 Chronic diastolic (congestive) heart failure; Z66 Do not resuscitate; Z51.5 Encounter for palliative care; F03.90 Unspecified dementia, unspecified severity, without behavioral disturbance, psychotic disturbance, mood disturbance, and anxiety; Z96.653 Presence of artificial knee joint, bilateral; R65.20 Severe sepsis without septic shock; D64.9 Anemia, unspecified; E86.0 Dehydration; R31.9 Hematuria, unspecified; I25.10 Atherosclerotic heart disease of native coronary artery without angina pectoris; K21.9 Gastro-esophageal reflux disease without esophagitis; E55.9 Vitamin D deficiency, unspecified; B96.20 Unspecified Escherichia coli [E. coli] as the cause of diseases classified elsewhere; E78.00 Pure hypercholesterolemia, unspecified; Z90.49 Acquired absence of other specified parts of digestive tract; Z90.710 Acquired absence of both cervix and uterus; Z98.49 Cataract extraction status, unspecified eye; I25.2 Old myocardial infarction; Z68.36 Body mass index [BMI] 36.0-36.9, adult; Z82.49 Family history of ischemic heart disease and other diseases of the circulatory system; Z79.1 Long term (current) use of non-steroidal anti-inflammatories (NSAID); Z79.82 Long term (current) use of aspirin; Z79.899 Other long term (current) drug therapy